=== PATIENT | male | born 1980 | race African-American/Black ===

== ENCOUNTER 2021-06-11 17:19 | Emergency (ER) | payer SELFPAY ==
[~2021-06-11] VITALS: Ht 182.9 cm; Wt 82.0 kg
[2021-06-11 17:24] VITALS: BP 145/84
== END 2021-06-11 17:43 | disposition left against medical advice (07) ==
LOC: ER 17:19
DX: F10.129 Alcohol abuse with intoxication, unspecified (principal); Y90.9 Presence of alcohol in blood, level not specified
CPT/HCPCS: 99283